=== PATIENT | male | born 1970 | race Two or more races ===

== ENCOUNTER 2016-07-12 19:34 | Emergency (ER) | payer SELFPAY ==
[~2016-07-12] VITALS: Ht 185.4 cm; Wt 90.7 kg
--- NOTE | 2016-07-12 19:49 | NUR ---
PT BIB SELF C/O R PELVIC PAIN TODAY. DENIES N/V/D. ABD NONTENDER TO PALP. DENIES HEAMTURIA/DYSURIA. ALSO REPORTS "CHILLS" AND "FLU SYMPTOMS". SKIN WARM NONDIAPHORETIC. AFEBRILE. RESP EVEN UNLABORED. NAD NOTED. IN ER BED 11.
[2016-07-12] MEDS ORDERED: ONDANSETRON HCL/PF 4 MG/2 ML VIAL ONE (20:00)
[2016-07-12] MEDS ORDERED: IV NS 0.9% 1,000 ML BAG IV ONE (20:00)
[2016-07-12] MEDS ORDERED: IV SET PRIMARY 1 EA INFUS.SET MC ONE (20:00)
[2016-07-12] MEDS ORDERED: ONDANSETRON HCL/PF 4 MG/2 ML VIAL IVP ONE (20:00)
[2016-07-12] MEDS ORDERED: MORPHINE SULFATE INJ 2 MG/ML DISP.SYRIN IV ONE (20:00)
[2016-07-12] MEDS ORDERED: IV NS 0.9% 1,000 ML ONE (20:00)
[2016-07-12 20:06] LABS: BASOPHILS # (AUTO) 0.1 /CMM (0.0-0.2); EOSINOPHILS # (AUTO) 0.1 /CMM (0.0-0.7); EOSINOPHILS % (AUTO) 1.6 % (0.0-6.0); HEMATOCRIT 46 % (39-51); HEMOGLOBIN 15.2 g/dL (13.5-17.5); LYMPHOCYTES # (AUTO) 2.3 /CMM (0.8-4.8); LYMPHOCYTES % (AUTO) 34.2 % (20.0-44.0); MEAN CORPUSCULAR HEMOGLOBIN 28 PG (26.0-33.0); MEAN CORPUSCULAR HGB CONC 33 g/dl (31.0-36.0); MEAN CORPUSCULAR VOLUME 85 fL (80-96); MONOCYTES # (AUTO) 0.5 /CMM (0.1-1.30); MONOCYTES % (AUTO) 6.9 % (2.0-12.0); NEUTROPHILS # (AUTO) 3.7 /CMM (1.8-8.9); NEUTROPHILS % (AUTO) 56.3 % (43.0-81.0); PLATELET COUNT (AUTO) 260 /CMM (150-450); RDW COEFFICIENT OF VARIATION 12.1 (11.5-15.0); RED BLOOD CELL COUNT(AUTO) 5.43 MIL/uL (4.5-6.0); WHITE BLOOD COUNT (AUTO) 6.7 K/uL (4.3-11.0)
--- NOTE | 2016-07-12 20:09 | NUR ---
PT REFUSES PAIN MEDICATION. REPORTS NAUSEA; CONSENTS TO [facility] AND IVF ADMIN. MD NOTIFIED.
[2016-07-12 20:15] LABS: CALCIUM, SERUM 9.3 mg/dL (8.5-10.1); CREATININE 1.1 mg/dL (0.6-1.3)
[2016-07-12 20:22] LABS: INR 0.95 (0.87-1.13); PROTHROMBIN TIME 9.9 SECS (9.5-12.7)
[2016-07-12 20:53] LABS: APPEARANCE,URINE Clear (CLEAR); BILIRUBIN,URINE Negative (NEGATIVE); BLOOD, URINE Negative Ery/uL (NEGATIVE); COLOR,URINE Yellow (YELLOW); KETONES,URINE Negative (NEGATIVE); LEUKOCYTE ESTERASE ,URINE Negative (NEGATIVE); NITRITE, URINE Negative (NEGATIVE); PH,URINE 6.5 (5.0-8.0); PROTEIN,URINE Negative (NEGATIVE); UGLUCOSE Negative (NEGATIVE); UROBILINOGEN,URINE 0.2 EU/dL (0.2)
--- NOTE | 2016-07-12 21:59 | NUR ---
Patient discharged to home in stable condition. Written and verbal after care instructions given. Patient verbalizes understanding of instruction. IV removed. Catheter intact and site benign. Pressure and 4x4 applied to site. No bleeding noted. AMBULATORY WITH STEADY GAIT. NAD NOTED. PAIN TOLERABLE AT THIS TIME; NO PAIN MEDICATION NEEDED DURING ER VISIT.
[2016-07-12 22:00] VITALS: BP 144/78
== END 2016-07-12 22:00 | disposition home or self-care (01) ==
LOC: ER 19:36
DX: R10.31 Right lower quadrant pain (principal)
CPT/HCPCS: 36415; 74176; 80048; 81001; 85025; 85730; 96361; 96374; 99285; A4606; J2405; J7030; Z7610; 81000-TC